=== PATIENT | male | born 1980 | race Two or more races ===

== ENCOUNTER 2016-09-14 19:39 | Emergency (ER) | payer SELFPAY ==
[~2016-09-14] VITALS: Ht 175.3 cm; Wt 77.1 kg
--- NOTE | ~2016-09-14 | CR72 ---
[facility]. [facility] A Service of [facility] & [facility] RADIOLOGY TEXT RESULTS PATIENT: KYLAH HURTADO LOCATION: SED : 78 UNIT #: [id number] AGE: [address]: Chucho Neri MD SEX: M ORDER DR: [id number] [place] [id number] E MR#: [id number] #: [id number] NAME: KYLAH HURTADO. : 1980 SEX: M STUDY DATE/TIME: 09/14/2016 20:15 UNIT: SED ROOM: STUDY DESCRIPTION: CR Chest Single View Portable Attending Physician: Chucho Neri M.D. Ordering Physician: Chucho Neri M.D. Primary Care Physician: No Primary Care Physician MEDICAL IMAGING REPORT This report is preliminary unless electronic signature is present. EXAM Portable chest. HISTORY Chest pain today. No injury. FINDINGS Cardiac size and pulmonary vascularity are normal. No infiltrates or effusions. Mild mid-right thoracic curve. IMPRESSION No acute findings. Dictated by... Josr Valdes M.D. THIS IS AN ELECTRONICALLY VERIFIED REPORT Josr Valdes M.D. at 09/15/2016 2:38 PM BRANDI/cruz TD: 09/15/2016 09:49 JOB #: [id number] MEDICAL IMAGING REPORT Page 1 of 1
--- NOTE | ~2016-09-14 | EKG ---
PATIENT: KYLAH HURTADO UNIT #: [id number] Ventricular Rate: 72 BPM Atrial Rate: 72 BPM P-R Interval: 166 ms QRS Duration: 92 ms Q-T Interval: 370 ms QTC Calculation(Bezet): 405 ms P [place]: 46 degrees Calculated R [place]: 3 degrees Calculated T [place]: 47 degrees Diagnosis Line: Normal sinus rhythm Diagnosis Line: Normal ECG Diagnosis Line: Diagnosis Line: Confirmed by MARILIN PENA MD ([id number]) on Diagnosis Line: 09/16/2016 2:14:47 PM INTERPRETING MD: BECKY RENDON
[2016-09-14 20:38] LABS: BASOPHIL# 0.1 X10e3 (0-0.3); BASOPHIL% 0.6 % (0-2.5); EOSINOPHIL# 0.1 X10e3 (0-0.7); EOSINOPHIL% 0.5 % (0.0-7.0); HEMATOCRIT 48.2 % (38.0-50.0); HEMOGLOBIN 16.7 gm/dL (13.0-16.0); LYMPHOCYTE% 18.3 % (17.0-45.0); MEAN CORPUSCULAR HEMOGLOBIN 29.5 PG (28-34); MEAN CORPUSCULAR HGB CONC 34.7 g/dL (30-36); MEAN PLATELET VOLUME 9.6 FL (6.5-11.5); MONOCYTE# 0.5 X10e3 (0-1.0); NEUTROPHIL# 8.2 X10e3 (1.5-7.1); NEUTROPHIL% 75.6 % (40-75); PLATELET COUNT 234 X10e3 (140-420); RED BLOOD COUNT 5.66 X10e (3.90-5.60); RED CELL DISTRIBUTION WIDTH 13.6 % (11.0-15.5); WHITE BLOOD COUNT 10.9 X10e3 (4.0-10.5)
[2016-09-14 20:43] LABS: DIFF IND NO
[2016-09-14 20:56] LABS: ALBUMIN SERUM 4.5 g/dL (3.5-5.0); BUN/CREATININE RATIO 17.69; CALCIUM SERUM 9.1 mg/dL (8.4-10.2); CREATININE SERUM 1.3 mg/dL (0.6-1.4); GLOM FILT RATE Estimated 69.7 mL/min (>60); POTASSIUM 3.5 mmol/L (3.5-5.1); PROTEIN TOTAL SERUM 7.6 g/dL (6.0-8.3)
[2016-09-14 22:05] LABS: POC - CKMB 24.7 ng/mL (0.0-7.9); POC - TROPONIN 2.31 ng/mL (<=0.05)
[2016-09-14 22:07] LABS: POC - CKMB 25.3 ng/mL (0.0-7.9); POC - TROPONIN 4.91 ng/mL (<=0.05)
== END 2016-09-15 02:29 ==
LOC: SED 19:39
PROVIDERS: Emergency Medicine
DX: I21.4 Non-ST elevation (NSTEMI) myocardial infarction (principal)
CPT/HCPCS: 71010; 80048; 80076; 82553; 84484; 85025; 93005; 96372; 99291; J1650

== ENCOUNTER 2016-09-29 18:40 | Emergency (ER) | payer SELFPAY ==
[~2016-09-29] VITALS: Ht 170.2 cm; Wt 77.1 kg
--- NOTE | ~2016-09-29 | EKG ---
PATIENT: KYLAH HURTADO UNIT #: [id number] Ventricular Rate: 77 BPM Atrial Rate: 77 BPM P-R Interval: 172 ms QRS Duration: 86 ms Q-T Interval: 340 ms QTC Calculation(Bezet): 384 ms P [place]: 63 degrees Calculated R [place]: -11 degrees Diagnosis Line: Normal sinus rhythm Diagnosis Line: Normal ECG Diagnosis Line: Diagnosis Line: Confirmed by BRAYAN PETERS MD ([id number]) on 10/02/2016 Diagnosis Line: 4:36:23 PM INTERPRETING MD: FRAN RENDON
--- NOTE | ~2016-09-29 | EKG ---
PATIENT: KYLAH HURTADO UNIT #: [id number] Ventricular Rate: 68 BPM Atrial Rate: 68 BPM P-R Interval: 178 ms QRS Duration: 90 ms Q-T Interval: 364 ms QTC Calculation(Bezet): 387 ms P [place]: 33 degrees Calculated R [place]: -11 degrees Calculated T [place]: -19 degrees Diagnosis Line: Normal sinus rhythm Diagnosis Line: Normal ECG Diagnosis Line: Diagnosis Line: Confirmed by BRAYAN PETERS MD ([id number]) on 10/02/2016 Diagnosis Line: 4:36:28 PM INTERPRETING MD: FRAN RENDON
[2016-09-29] MEDS ORDERED: LIPITOR80 MG PO (18:51)
[2016-09-29] MEDS ORDERED: NITROQUICK SL (18:51)
[2016-09-29] MEDS ORDERED: ZESTRIL5 MG PO (18:51)
[2016-09-29] MEDS ORDERED: BRILINTA90 MG PO (18:52)
[2016-09-29] MEDS ORDERED: METOPROLOL TAR25 MG PO (18:52)
[2016-09-29] MEDS ORDERED: BAYER CHEWABLE81 MG PO (18:53)
[2016-09-29 19:38] LABS: BASOPHIL% 0.5 % (0-2.5); EOSINOPHIL% 0.4 % (0.0-7.0); HEMATOCRIT 49.3 % (38.0-50.0); HEMOGLOBIN 16.7 gm/dL (13.0-16.0); LYMPHOCYTE# 1.2 X10e3 (1.0-3.5); LYMPHOCYTE% 12.8 % (17.0-45.0); MEAN CELL VOLUME 84.9 FL (83-96); MEAN CORPUSCULAR HEMOGLOBIN 28.8 PG (28-34); MEAN PLATELET VOLUME 9.6 FL (6.5-11.5); MONOCYTE# 0.7 X10e3 (0-1.0); MONOCYTE% 7.1 % (3.0-12.0); NEUTROPHIL# 7.4 X10e3 (1.5-7.1); NEUTROPHIL% 79.2 % (40-75); PLATELET COUNT 270 X10e3 (140-420); RED CELL DISTRIBUTION WIDTH 13.5 % (11.0-15.5); WHITE BLOOD COUNT 9.3 X10e3 (4.0-10.5)
[2016-09-29 19:44] LABS: BUN/CREATININE RATIO 16.42; CALCIUM SERUM 9.2 mg/dL (8.4-10.2); CREATININE SERUM 1.4 mg/dL (0.6-1.4); DIFF IND NO; GLOM FILT RATE Estimated 63.8 mL/min (>60); MAGNESIUM 2.1 mg/dL (1.6-3.0)
[2016-09-30 13:28] LABS: POC - CKMB 1.4 ng/mL (0.0-7.9)
[2016-09-30 13:29] LABS: POC - MYOGLOBIN 53.2 ng/mL (0.0-169.0); POC - TROPONIN <0.05 ng/mL (<=0.05)
== END 2016-09-29 20:50 | disposition home or self-care (01) ==
LOC: SED 18:40
PROVIDERS: Emergency Medicine
DX: F41.9 Anxiety disorder, unspecified (principal); I25.10 Atherosclerotic heart disease of native coronary artery without angina pectoris
CPT/HCPCS: 36415; 80048; 82553; 83735; 83874; 84484; 85025; 93005; 99285